=== PATIENT | male | born 1945 | race Caucasian/White ===

== ENCOUNTER 2017-08-07 08:09 | Emergency (ER) | payer MEDICARE, OTHER ==
[~2017-08-07] VITALS: Ht 182.9 cm; Wt 106.6 kg
[~2017-08-07 08:09] MED LIST: ASPI81EC; ISOMON30 PO
[2017-08-07] MEDS ORDERED: Kristalose20 GM PO (08:42)
== END 2017-08-07 08:56 | disposition home or self-care (01) ==
LOC: ER 08:09
DX: K59.09 Other constipation (principal); Z88.5 Allergy status to narcotic agent; Z79.82 Long term (current) use of aspirin; Z79.899 Other long term (current) drug therapy; I25.2 Old myocardial infarction
CPT/HCPCS: 99282

== ENCOUNTER 2019-08-04 20:34 | Emergency (ER) | payer OTHER, MEDICARE ==
[~2019-08-04] VITALS: Ht 177.8 cm; Wt 120.2 kg
[~2019-08-04 20:34] MED LIST changes: +Kristalose20 GM PO
[2019-08-04 23:00] LABS: Source, Urine Clean Catch
[2019-08-04 23:02] LABS: Appearance, Urine Turbid (Clear); Blood, Urine 5+ (Neg); Color, Urine Amber (P-Yellow); Glucose Qualitative, Urine Neg (Neg); Ketones, Urine 1+ (Neg); Leukocyte Esterase, Urine 2+ (Neg); Nitrite, Urine Pos (Neg); Protein, Urine 3+ (Neg); Specific Gravity, Urine 1.025 (1.003-1.022); Urobilinogen, Urine 2+ (Normal)
[2019-08-04 23:04] LABS: Bilirubin, Urine 1+ (Neg)
[2019-08-04 23:11] LABS: Red Blood Cells, Urine TNTC /hpf (0-2)
[2019-08-04 23:12] LABS: Bacteria Many /hpf; Squamous Epithelial Cells Not Seen /hpf (Few)
[2019-08-04] MEDS ORDERED: CEFP200 PO (23:27)
== END 2019-08-04 23:33 | disposition home or self-care (01) ==
LOC: ER 20:34
PROVIDERS: Physician Assistant
DX: N30.01 Acute cystitis with hematuria (principal); I25.2 Old myocardial infarction; Z88.2 Allergy status to sulfonamides; Z79.82 Long term (current) use of aspirin; Z79.899 Other long term (current) drug therapy; Z87.891 Personal history of nicotine dependence
CPT/HCPCS: 81001; 87086; 99283; A9270-GY

== ENCOUNTER 2019-10-04 16:13 | Emergency (ER) | payer MEDICARE, OTHER ==
[~2019-10-04] VITALS: Ht 182.9 cm; Wt 102.1 kg
[~2019-10-04 16:13] MED LIST changes: +CEFP200 PO
[2019-10-04 16:27] LABS: Source, Urine Clean Catch
[2019-10-04 16:33] LABS: Appearance, Urine Hazy (Clear); Bilirubin, Urine Neg (Neg); Blood, Urine 5+ (Neg); Color, Urine Amber (P-Yellow); Glucose Qualitative, Urine Neg (Neg); Ketones, Urine Neg (Neg); Leukocyte Esterase, Urine 1+ (Neg); Nitrite, Urine Neg (Neg); Protein, Urine 1+ (Neg); Specific Gravity, Urine 1.025 (1.003-1.022); Urobilinogen, Urine NORM (Normal)
[2019-10-04 16:37] LABS: Red Blood Cells, Urine TNTC /hpf (0-2); White Blood Cells, Urine 0-2 /hpf (0-5)
[2019-10-04 16:38] LABS: Bacteria Rare /hpf; Squamous Epithelial Cells Not Seen /hpf (Few)
[2019-10-04] MEDS ORDERED: CEPH500 PO (16:57)
== END 2019-10-04 17:01 | disposition home or self-care (01) ==
LOC: ER 16:13
PROVIDERS: Student in an Organized Health Care Education/Training Program
DX: R31.9 Hematuria, unspecified (principal); I25.2 Old myocardial infarction; Z88.5 Allergy status to narcotic agent; Z79.82 Long term (current) use of aspirin; Z87.891 Personal history of nicotine dependence
CPT/HCPCS: 81001; 87086; 99283

== ENCOUNTER 2023-11-18 17:31 | Emergency (ER) | payer MEDICARE, OTHER ==
[~2023-11-18] VITALS: Ht 182.9 cm; Wt 102.1 kg
[~2023-11-18 17:31] MED LIST changes: +CEPH500 PO
[2023-11-18 17:51] VITALS: BP 156/118
[2023-11-18] MEDS ORDERED: Ketorolac Tromethamine 30mg Vial IM ONE (18:10)
== END 2023-11-18 18:16 | disposition home or self-care (01) ==
LOC: ER 17:31
DX: M54.41 Lumbago with sciatica, right side (principal); Z88.5 Allergy status to narcotic agent; Z79.82 Long term (current) use of aspirin; Z87.891 Personal history of nicotine dependence
CPT/HCPCS: J1885